=== PATIENT | female | born 1970 | race Two or more races ===

== ENCOUNTER 2020-01-09 08:14 | Outpatient (CLI) | payer OTHER | END 2020-01-09 08:27 | disposition home or self-care (01) | LOC: MAMO-SONO 08:14 | DX: Z12.31 Encounter for screening mammogram for malignant neoplasm of breast (principal); N64.4 Mastodynia ==

== ENCOUNTER 2021-09-04 12:39 | Outpatient (CLI) | payer OTHER | END 2021-09-04 12:51 | disposition home or self-care (01) | LOC: MAMO-SONO 12:39 | DX: D24.1 Benign neoplasm of right breast (principal); D24.2 Benign neoplasm of left breast; Z12.31 Encounter for screening mammogram for malignant neoplasm of breast ==